=== PATIENT | male | born 1980 | race Caucasian/White ===

== ENCOUNTER 2024-05-29 07:41 | Outpatient (CLI) | payer BC, SELFPAY ==
--- NOTE | 2024-05-29 07:46 | US_ITS ---
FINAL REPORT TECHNIQUE: Sonographic images of the right upper quadrant were obtained. CLINICAL HISTORY: ACUTE PANCREATITIS COMPARISON: None FINDINGS: PANCREAS: Unremarkable. LIVER: Homogeneous. No focal hepatic lesion. No intrahepatic biliary ductal dilatation. GALLBLADDER: No gallstones. No gallbladder wall thickening or pericholecystic fluid. COMMON DUCT: 3 mm. Normal for age. RIGHT KIDNEY: The right kidney measures 10.8 cm. There is no hydronephrosis. There is an approximately 1 cm hypoechoic lesion that is likely a cyst. FREE FLUID: None. IMPRESSION: Probable right renal cyst. Otherwise, unremarkable right upper quadrant ultrasound. Reviewed, Interpreted and Dictated by Julia Sesay MD Transcribed by Ling Nails Authenticated and [facility]
== END 2024-05-29 23:59 | disposition home or self-care (01) ==
LOC: RAD 07:43
PROVIDERS: PCP Family Medicine; Visit Provider Family Medicine
DX: K85.90 Acute pancreatitis without necrosis or infection, unspecified (principal)
CPT/HCPCS: 76705